=== PATIENT | male | born 1995 | race Caucasian/White ===

== ENCOUNTER → 2018-02-05 | Day surgery (SDC) | payer OTHER ==
[~2018-02-05] MED LIST: CEFAZOLIN 1 GM INJ; CEFAZOLIN 2 GM/50 ML (PMX) 50 ML IVPB; FENTAnyl 50 MCG/ML VIAL; HYDROCODONE/APAP (5/325) TAB PO; KETOROLAC 30 MG INJ; LIDOCAINE 1% (MPF) 30 ML INJ; METOCLOPRAMIDE 10 MG INJ; MIDAZOLAM 1 MG/ML 2 ML INJ; ONDANSETRON 4 MG INJ; PROPOFOL 20 ML; SOD CHLORIDE 0.9% 1,000 ML IV
[2018-02-05] MEDS: BUPIVACAINE 0.25% (MPF) 30 ML INJ (13:30)
== END | disposition home or self-care (01) ==
LOC: SDS 09:02
DX: L72.0 Epidermal cyst (principal)
CPT/HCPCS: 14000; 88307